=== PATIENT | male | born 1960 | race African-American/Black ===

== ENCOUNTER 2022-08-24 08:19 | Outpatient (CLI) | payer BC ==
[2022-08-24] MEDS ORDERED: Iopamidol 370 76% 100 ML VIAL ONE (10:05)
== END 2022-08-24 08:20 | disposition home or self-care (01) ==
LOC: NM 08:19
PROVIDERS: ATTEND Internal Medicine Hematology & Oncology
DX: C61 Malignant neoplasm of prostate (principal); C79.51 Secondary malignant neoplasm of bone; R59.0 Localized enlarged lymph nodes; K76.9 Liver disease, unspecified; R60.1 Generalized edema; N32.89 Other specified disorders of bladder
CPT/HCPCS: 71260; 74177; 78306; 82565; A9503; Q9967